=== PATIENT | female | born 1930 | race Caucasian/White ===

== ENCOUNTER 2017-04-12 12:09 | Inpatient (IN) ==
[2017-04-12] MEDS ORDERED: SALINE FLUSH 10ml SYRINGE IVF PRN (14:19)
[2017-04-12] MEDS ORDERED: SALINE FLUSH 10ml SYRINGE ONE (15:34)
[2017-04-12] MEDS ORDERED: ENOXAPARIN 40 MG/0.4 ML INJECTION SQ SCH (15:45)
--- NOTE | 2017-04-12 15:48 | Cardiology History & Physical ---
History of Present Illness Chief complaint: heart racing HPI: Mariana is a 86 year old female who presented to the ED in [place] earlier today with the chief complaint of her heart racing constantly for the last day. She also stated she did not feel right in the head, with intermittent dyspnea and nausea. She reports recently being treated for a UTI. Her only known health problems are HTN, GERD and insomnia. She denies fever, chills, sore throat, cough, chest pain, vomiting or loose stools. Review of Systems - Constitutional Constitutional: Absent: chills, fever(s) - EENMT Eyes: Absent: change in vision Balance: Present: vertigo Mouth/Throat: Absent: sore throat - Cardiovascular Cardiovascular: Present: palpitations, dyspnea on exertion. Absent: chest pain , syncope, orthopnea Rhythm: Present: regular rhythm - Respiratory Respiratory: Present: dyspnea on exertion. Absent: cough - Gastrointestinal Gastrointestinal: Present: nausea. Absent: diarrhea, vomiting - Integumentary/Breasts Integumentary: Absent: rash - Neurological Neurological: Absent: dizziness - Psychiatric Psychiatric: Present: anxiety - Endocrine Endocrine: Present: palpitations PFSH Patient Stated Medical History Migraine Yes Cataracts Yes Hypertension Yes Bronchitis Yes Hx Urinary Tract Infection Yes Shingles Yes Fibroids Yes Surgical History: lumpectomy. cataract removal. kidney stones Family History: No family history of heart disease/CA Mother- CVA in her 70s Father -Cancer - Social History Smoking status: Never smoker Substance use type: does not use Alcohol intake frequency: does not drink Household members: none Current occupational status: retired Current residence: Apartment/Private Home Medications Home Medications Medication Instructions Recorded Confirmed Type Acetaminophen/Diphenhydramine 1 - 2 tab PO HS PRN #0 02/20/15 04/12/17 History [Tylenol Pm Ex-Strength Caplet] Metoprolol Succinate 25 mg PO DAILY #0 tab 02/20/15 04/12/17 History Omeprazole 20 mg PO ACB #0 cap 02/20/15 04/12/17 History Ascorbic Acid [Vitamin C] 240 mg PO DAILY 04/12/17 04/12/17 History Folic Acid/Mv,Iron,Min [One Daily 1 each PO DAILY 04/12/17 04/12/17 History For Women Tablet] Losartan Potassium [Cozaar] 100 mg PO HS 04/12/17 04/12/17 History Nortriptyline HCl 50 mg PO HS 04/12/17 04/12/17 History Allergies Allergy/AdvReac Type Severity Reaction Status Date / Time No Known Allergies Allergy Verified 04/12/17 14:36 Exam Vital signs: Temperature 98.1 F 04/12/17 13:57 Pulse Rate 103 H 04/12/17 13:57 Respiratory Rate 20 04/12/17 13:57 Blood Pressure 156/91 H 04/12/17 13:57 Pulse Oximetry 98 04/12/17 13:57 Oxygen Delivery Method Room Air - Constitutional no acute distress, well nourished, well developed, cooperative - Routine HEENT Exam Head: Present: normocephalic ENT: Present: mucous membranes moist - Routine Neck Exam Absent: JVD, carotid bruit - Routine Chest/Breast/Axilla Exam Chest wall: Absent: tenderness - Routine Respiratory Exam Present: CTA bilaterally. Absent: rales, wheezes - Routine Cardiovascular Exam Present: RRR, no murmur. Absent: JVD - Routine Abdominal Exam Present: soft, normoactive bowel sounds - Routine Extremities Exam Present: no edema - Routine Skin Exam Present: intact, dry, warm - Routine Neurological Exam Present: alert, oriented X3 - Routine Psychiatric Exam Present: normal affect, normal thought process Results 04/14/17 04:27 04/14/17 04:27 Intake and Output 04/12/17 04/12/17 04/12/17 06:59 14:59 22:59 Other: Weight 134 lb 14.766 oz Patient Weight 04/13/17 06:59 Weight 134 lb 14.766 oz - Imaging and Cardiology Echo: report reviewed EKG results: image reviewed Imaging & Cardiology Narrative: Date of Exam: 04/12/17 Type of Exam(s): US echo doppler complete DATE OF PROCEDURE April 12, 2017 This is a two-dimensional echo with spectral Doppler, color-flow and M-mode. It was obtained in a patient with shortness of breath and tachycardia. Left atrial dimension is normal. Left ventricle end-diastolic dimension is normal. Left ventricle wall thickness is normal. LV systolic function is normal with ejection fraction of 56%. Right atrium is normal. Right ventricle is normal. Aortic root dimension is normal. Mitral valve is morphologically normal with mild mitral regurgitation. Aortic valve appears to be normal. Tricuspid valve shows mild tricuspid regurgitation with normal estimated pulmonary artery systolic pressure of 27. Pulmonary valve shows no pulmonary insufficiency. There is no pericardial effusion. IMPRESSION 1. Normal LV systolic function with ejection fraction of 56%. 2. Mild mitral regurgitation. 3. Mild tricuspid regurgitation with normal estimated pulmonary artery systolic pressure of 27. 04/13/17 09:59 Date of Exam: 04/12/17 Ordering Provider: Emilia Sherman APRN Type of Exam(s): NM pul vent and perfuse Reason for Exam(s): elevated D-Dimer Indication: elevated D-Dimer PROCEDURE: NM pul vent and perfuse: Comparison: Chest x-ray from today Technique: The patient received 43.2mCi aerosolized Tc-99m DTPA prior to obtaining ventilation images. Next, 6.4 mCi of Tc-99m MAA was administered intravenously prior to obtaining perfusion images in the standard 8 views. A chest x-ray from today was reviewed. Findings: Ventilation images demonstrate radiotracer uptake throughout both lungs with relative decrease in uptake in both upper lobes. Perfusion images also demonstrate good uptake bilaterally. There is a small nonsegmental perfusion defect in the lateral aspect of the left lower lobe. This corresponds to a defect seen in the ventilation images. There are no segmental perfusion defects. Impression: Low probability lung ventilation/perfusion scan for pulmonary embolus (approximately 15% probability). 04/13/17 09:59 - EKG Interpretation EKG shows: tachycardia EKG interpretations - Dysrhythmias Sinus rhythms and dysrhythmias: sinus tachycardia Hospital Course This is a general summary of the patient's hospital course. For more details refer to the complete medical record. Time spent with patient: 25 - 35 minutes DVT Prophylaxis: Lovenox Assessment and Plan (1) Tachycardia Current visit: Yes Status: Acute Appears sinus tachycardia. Metoprolol 2.5mg IV X1 to slow rate. Repeat EKG in am. Continue home BB, ARB, Aspirin 81mg daily Obtain echo, check TSH and Mag (2) Essential (primary) hypertension Current visit: Yes Status: Chronic well controlled on current therapy (3) GERD (gastroesophageal reflux disease) Current visit: Yes Status: Chronic Continue Omeprazole - Attestation Attestation Narrative: 04/14/17 12:47 Recommendation After examining the patient I agree with the above assessment. I am involved in the formulation of the patient's plan of care.
--- NOTE | 2017-04-12 16:57 | Nuclear Medicine Report ---
Indication: elevated D-Dimer PROCEDURE: NM pul vent and perfuse: Comparison: Chest x-ray from today Technique: The patient received 43.2mCi aerosolized Tc-99m DTPA prior to obtaining ventilation images. Next, 6.4 mCi of Tc-99m MAA was administered intravenously prior to obtaining perfusion images in the standard 8 views. A chest x-ray from today was reviewed. Findings: Ventilation images demonstrate radiotracer uptake throughout both lungs with relative decrease in uptake in both upper lobes. Perfusion images also demonstrate good uptake bilaterally. There is a small nonsegmental perfusion defect in the lateral aspect of the left lower lobe. This corresponds to a defect seen in the ventilation images. There are no segmental perfusion defects. Impression: Low probability lung ventilation/perfusion scan for pulmonary embolus (approximately 15% probability). .
[2017-04-12] MEDS ORDERED: METOPROLOL 5mg/5ml INJECTION IVP ONE (17:17)
[2017-04-12] MEDS ORDERED: APAP/DIPHENHYDRAMINE 500 MG/25 MG TABLET PO PRN (17:47)
--- NOTE | 2017-04-12 18:06 | Echocardiogram ---
DATE OF PROCEDURE April 12, 2017 This is a two-dimensional echo with spectral Doppler, color-flow and M-mode. It was obtained in a patient with shortness of breath and tachycardia. Left atrial dimension is normal. Left ventricle end-diastolic dimension is normal. Left ventricle wall thickness is normal. LV systolic function is normal with ejection fraction of 56%. Right atrium is normal. Right ventricle is normal. Aortic root dimension is normal. Mitral valve is morphologically normal with mild mitral regurgitation. Aortic valve appears to be normal. Tricuspid valve shows mild tricuspid regurgitation with normal estimated pulmonary artery systolic pressure of 27. Pulmonary valve shows no pulmonary insufficiency. There is no pericardial effusion. IMPRESSION 1. Normal LV systolic function with ejection fraction of 56%. 2. Mild mitral regurgitation. 3. Mild tricuspid regurgitation with normal estimated pulmonary artery systolic pressure of 27. MTDD
[2017-04-12] MEDS: NS 1,000 ML IV SCH (18:50)
[2017-04-12] MEDS: LOSARTAN 100 MG TAB - PT OWN PO SCH (20:44)
[2017-04-12] MEDS: NORTRIPTYLINE 25 MG PO SCH (20:44)
[2017-04-13] MEDS: OMEPRAZOLE 20 MG CAP - PT OWN PO SCH (06:08)
[2017-04-13] MEDS: NS 1,000 ML IV SCH (07:42)
[2017-04-13] MEDS: ASPIRIN *EC* 81 MG TAB - PT OWN PO SCH (09:54)
[2017-04-13] MEDS: METOPROLOL SUCCINATE 25 MG PO SCH (09:55)
[2017-04-13] MEDS: ASCORBIC ACID 500 MG TABLET PO SCH (10:30)
[2017-04-13] MEDS: MULTI-VITAMIN + MINERAL TABLET PO SCH (10:30)
[2017-04-13] MEDS ORDERED: ADENOSINE 6mg/2ml INJECTION IVP ONE (13:00)
[2017-04-13] MEDS ORDERED: FLECAINIDE 100 MG TABLET PO SCH (13:12)
[2017-04-13] MEDS ORDERED: FLECAINIDE 100 MG TABLET PO ONE (13:16)
[2017-04-13] MEDS: APIXABAN 5 MG TABLET PO SCH ×2 (14:09→22:01)
--- NOTE | 2017-04-13 14:46 | DC Cardioversion ---
DATE OF PROCEDURE April 13, 2017 HISTORY The patient is an 86-year-old lady with atrial flutter and was referred for cardioversion to restore normal rhythm. Informed consent was obtained after explaining the procedure and the potential risks to the patient who agreed to proceed with the procedure. PROCEDURE 1. DC cardioversion. DESCRIPTION OF PROCEDURE Conscious sedation was performed using Versed and fentanyl. Anterior-posterior Zoll pads were applied. 360 joules of energy was delivered in synchronized manner and patient converted from atrial flutter into sinus rhythm. She tolerated the procedure well with no complications. IMPRESSION 1. Successful DC cardioversion of atrial flutter into sinus rhythm. PLAN The patient has been on anticoagulation with Eliquis and will continue Eliquis and start her on antiarrhythmics to maintain sinus. [facility]
[2017-04-13] MEDS ORDERED: SALINE FLUSH 10ml SYRINGE IV ONE (14:54)
[2017-04-13] MEDS ORDERED: MIDAZOLAM 2mg/2ml INJECTION IVP ONE (14:54)
[2017-04-13] MEDS ORDERED: FentaNYL 100 MCG/2 ML INJECTION IVP ONE (14:54)
[2017-04-13 17:21] VITALS: BMI 24.5
[2017-04-13] MEDS: NORTRIPTYLINE 25 MG PO SCH (22:00)
[2017-04-13] MEDS: FLECAINIDE 50 MG TABLET PO SCH (22:01)
[2017-04-13] MEDS: LOSARTAN 100 MG TAB - PT OWN PO SCH (22:01)
[2017-04-14] MEDS: OMEPRAZOLE 20 MG CAP - PT OWN PO SCH (06:02)
[2017-04-14] MEDS: METOPROLOL SUCCINATE 25 MG PO SCH (09:03)
[2017-04-14] MEDS: ASPIRIN *EC* 81 MG TAB - PT OWN PO SCH (09:03)
[2017-04-14] MEDS: FLECAINIDE 50 MG TABLET PO SCH (09:04)
[2017-04-14] MEDS: APIXABAN 5 MG TABLET PO SCH (09:55)
[2017-04-14] MEDS: MULTI-VITAMIN + MINERAL TABLET PO SCH (09:55)
[2017-04-14] MEDS: ASCORBIC ACID 500 MG TABLET PO SCH (09:56)
[2017-04-14 11:29] VITALS: BP 178/81; RESP 28; TEMP 97.4; O2SAT 94
--- NOTE | 2017-04-14 11:41 | Discharge Summary ---
<Emilia Sherman - Last Filed: 04/14/17 11:38> Discharge Information Date of admission: 04/13/17 13:53 Anticipated date of discharge: 04/14/17 Attending Physician: Teo Santana MD Primary care physician: Judy Augustin MD Consults: 04/12/17 14:48 Dietary Consult [CONS] Routine Comment: Reason For Exam: - Discharge Diagnosis Discharge Diagnosis: New atrial flutter, HTN, GERD - Laboratory Labs: 04/14/17 04:27 04/14/17 04:27 - Radiology Radiology: DATE OF PROCEDURE April 13, 2017 HISTORY The patient is an 86-year-old lady with atrial flutter and was referred for cardioversion to restore normal rhythm. Informed consent was obtained after explaining the procedure and the potential risks to the patient who agreed to proceed with the procedure. PROCEDURE 1. DC cardioversion. DESCRIPTION OF PROCEDURE Conscious sedation was performed using Versed and fentanyl. Anterior-posterior Zoll pads were applied. 360 joules of energy was delivered in synchronized manner and patient converted from atrial flutter into sinus rhythm. She tolerated the procedure well with no complications. IMPRESSION 1. Successful DC cardioversion of atrial flutter into sinus rhythm. PLAN The patient has been on anticoagulation with Eliquis and will continue Eliquis and start her on antiarrhythmics to maintain sinus. History of Present Illness HPI: Mariana is a 86 year old female who presented to the ED in [place] earlier today with the chief complaint of her heart racing constantly for the last day. She also stated she did not feel right in the head, with intermittent dyspnea and nausea. She reports recently being treated for a UTI. Her only known health problems are HTN, GERD and insomnia. She denies fever, chills, sore throat, cough, chest pain, vomiting or loose stools. Hospital Course This is a general summary of the patient's hospital course. For more details refer to the complete medical record. Time spent with patient: 25 - 35 minutes Exam Vital signs: Temperature 97.4 F 04/14/17 08:00 Pulse Rate 68 04/14/17 11:15 Respiratory Rate 28 H 04/14/17 11:15 Blood Pressure 178/81 H 04/14/17 11:02 Pulse Oximetry 94 04/14/17 11:15 Oxygen Delivery Method Room Air - Constitutional no acute distress, cooperative - Routine HEENT Exam Head: Present: normocephalic ENT: Present: mucous membranes moist - Routine Neck Exam Absent: JVD, carotid bruit - Routine Chest/Breast/Axilla Exam Chest wall: Absent: tenderness - Routine Respiratory Exam Present: CTA bilaterally. Absent: rales, wheezes - Routine Cardiovascular Exam Present: RRR, no murmur. Absent: JVD - Routine Abdominal Exam Present: soft, normoactive bowel sounds - Routine Extremities Exam Present: no edema - Routine Skin Exam Present: intact, dry, warm - Routine Neurological Exam Present: alert, oriented X3 - Routine Psychiatric Exam Present: normal affect, normal thought process Results 04/14/17 04:27 04/14/17 04:27 CBC 04/14/17 Range/Units 04:27 WBC 4.9 (4.5-11.0) T/MM3 RBC 3.95 L (4.00-5.20) M/MM3 Hgb 11.8 L (12-16) GM/DL Hct 35.8 L (36-46) % Plt Count 162 (130-400) T/MM3 Comprehensive Metabolic Panel 04/14/17 Range/Units 04:27 Sodium 140 (134-144) MEQ/L Potassium 4.4 (3.6-5) MEQ/L Chloride 104 (98-107) MEQ/L Carbon Dioxide 27 (22-30) MEQ/L BUN 21.0 H (7-17) MG/DL Creatinine 1.1 D (0.7-1.2) MG/DL Glucose 97 (65-110) MG/DL Calcium 8.9 (8.4-10.2) MG/DL Intake and Output 04/13/17 04/14/17 04/14/17 22:59 06:59 14:59 Intake Total 527.5 / 527.5 220 / 220 420 / 420 Output Total 472 / 472 525 / 525 266 / 266 Balance 55.5 / 55.5 -305 / -305 154 / 154 Intake: IV 527.5 / 527.5 Normal Saline 1,000 ml @ 527.5 / 527.5 75 mls/hr IV .[id number] [facility] Rx#:[id number] Oral 220 / 220 420 / 420 Output: Urine Amount (Catheter) 472 / 472 525 / 525 266 / 266 Other: Weight 134 lb 4.184 oz 143 lb 15.39 oz Patient Weight 04/15/17 06:59 Weight 143 lb 15.39 oz Laboratory Results - last 48 hr 04/12/17 04/12/17 04/13/17 16:57 18:26 04:36 WBC 4.7 RBC 4.32 Hgb 12.8 Hct 38.8 MCV 89.8 MCH 29.6 MCHC 33.0 RDW Std Deviation 39.8 Plt Count 173 MPV 9.3 L Turbidity Sodium Potassium Chloride Carbon Dioxide Anion Gap BUN Creatinine GFR Calculation BUN/Creatinine Ratio Glucose Calculated Osmolality Calcium Magnesium Icterus Index Troponin I < 0.012 TSH 1.52 Specimen Hemolysis < 15 Ur Collection Type Urine, mathias Urine Color Yellow Urine Clarity Clear Urine pH 5.5 Ur Specific [place] <=1.005 L Urine Protein Negative Urine Glucose (UA) Negative Urine Ketones Negative Urine Occult Blood Negative Urine Nitrate Negative Urine Bilirubin Negative Urine Urobilinogen 0.2 Ur Leukocyte Esterase 1+ A Urine RBC 0-1 Urine WBC 1-3 Ur Squamous Epith Cells None seen Urine Bacteria None seen Ur Culture Indicated? Cult not indicated 04/13/17 04/14/17 04/14/17 04:36 04:27 04:27 WBC 4.9 RBC 3.95 L Hgb 11.8 L Hct 35.8 L MCV 90.6 MCH 29.9 MCHC 33.0 RDW Std Deviation 40.9 Plt Count 162 MPV 9.1 L Turbidity < 20 < 20 Sodium 141 140 Potassium 4.9 4.4 Chloride 105 104 Carbon Dioxide 29 27 Anion Gap 7 9 BUN 19.0 H 21.0 H Creatinine 1.3 H 1.1 D GFR Calculation 39 47 BUN/Creatinine Ratio 15 19 Glucose 80 97 Calculated Osmolality 272 272 Calcium 9.0 8.9 Magnesium 1.8 1.8 Icterus Index < 2 < 2 Troponin I TSH Specimen Hemolysis < 15 < 15 Ur Collection Type Urine Color Urine Clarity Urine pH Ur Specific [place] Urine Protein Urine Glucose (UA) Urine Ketones Urine Occult Blood Urine Nitrate Urine Bilirubin Urine Urobilinogen Ur Leukocyte Esterase Urine RBC Urine WBC Ur Squamous Epith Cells Urine Bacteria Ur Culture Indicated? - Imaging and Cardiology Imaging & Cardiology Narrative: Date of Exam: 04/12/17 Type of Exam(s): US echo doppler complete DATE OF PROCEDURE April 12, 2017 This is a two-dimensional echo with spectral Doppler, color-flow and M-mode. It was obtained in a patient with shortness of breath and tachycardia. Left atrial dimension is normal. Left ventricle end-diastolic dimension is normal. Left ventricle wall thickness is normal. LV systolic function is normal with ejection fraction of 56%. Right atrium is normal. Right ventricle is normal. Aortic root dimension is normal. Mitral valve is morphologically normal with mild mitral regurgitation. Aortic valve appears to be normal. Tricuspid valve shows mild tricuspid regurgitation with normal estimated pulmonary artery systolic pressure of 27. Pulmonary valve shows no pulmonary insufficiency. There is no pericardial effusion. IMPRESSION 1. Normal LV systolic function with ejection fraction of 56%. 2. Mild mitral regurgitation. 3. Mild tricuspid regurgitation with normal estimated pulmonary artery systolic pressure of 27. - EKG Interpretation EKG: sinus rhythm (rate 70) Discharge Plan - Med Rec/Dispo Referrals/Follow Up: Teo Santana MD [Physician] - 05/03/17 2:10 pm Prescriptions: New Apixaban [Eliquis] 2.5 mg PO BID #60 tablet Flecainide [Tambocor] 50 mg PO Q12HR #60 tablet Continue Omeprazole 20 mg PO ACB #0 cap Acetaminophen/Diphenhydramine [Tylenol Pm Ex-Strength Caplet] 1 - 2 tab PO HS PRN #0 PRN Reason: Sleep Metoprolol Succinate 25 mg PO DAILY #0 tab Losartan Potassium [Cozaar] 100 mg PO HS Ascorbic Acid [Vitamin C] 240 mg PO DAILY Nortriptyline HCl 50 mg PO HS Folic Acid/Mv,Iron,Min [One Daily For Women Tablet] 1 each PO DAILY Discontinued Aspirin *EC* [Ecotrin] 1 tab PO DAILY - Disposition 01 Discharged Home, Self-Care <Teo Santana - Last Filed: 04/14/17 16:28> Discharge Information Date of admission: 04/13/17 13:53 Attending Physician: Teo Santana MD Primary care physician: Judy Augustin MD Consults: 04/12/17 14:48 Dietary Consult [CONS] Routine Comment: Reason For Exam: - Laboratory Labs: 04/14/17 04:27 04/14/17 04:27 Hospital Course This is a general summary of the patient's hospital course. For more details refer to the complete medical record. Exam Vital signs: Temperature 97.4 F 04/14/17 08:00 Pulse Rate 64 04/14/17 12:00 Respiratory Rate 28 H 04/14/17 11:15 Blood Pressure 178/81 H 04/14/17 11:02 Pulse Oximetry 94 04/14/17 11:15 Oxygen Delivery Method Room Air Results 04/14/17 04:27 04/14/17 04:27 CBC 04/14/17 Range/Units 04:27 WBC 4.9 (4.5-11.0) T/MM3 RBC 3.95 L (4.00-5.20) M/MM3 Hgb 11.8 L (12-16) GM/DL Hct 35.8 L (36-46) % Plt Count 162 (130-400) T/MM3 Comprehensive Metabolic Panel 04/14/17 Range/Units 04:27 Sodium 140 (134-144) MEQ/L Potassium 4.4 (3.6-5) MEQ/L Chloride 104 (98-107) MEQ/L Carbon Dioxide 27 (22-30) MEQ/L BUN 21.0 H (7-17) MG/DL Creatinine 1.1 D (0.7-1.2) MG/DL Glucose 97 (65-110) MG/DL Calcium 8.9 (8.4-10.2) MG/DL Intake and Output 04/14/17 04/14/17 04/14/17 06:59 14:59 22:59 Intake Total 220 / 220 780 / 780 Output Total 525 / 525 586 / 586 Balance -305 / -305 194 / 194 Intake: Oral 220 / 220 780 / 780 Output: Urine Amount (Catheter) 525 / 525 586 / 586 Other: # Voids 1 Weight 65.3 kg Patient Weight 04/15/17 06:59 Weight 65.3 kg Discharge Plan - Med Rec/Dispo - Attestation Attestation Narrative: 04/14/17 16:28 Recommendation After examining the patient I agree with the above assessment. I am involved in the formulation of the patient's plan of care.
[2017-04-14 15:08] VITALS: PULSE 64
== END 2017-04-14 14:15 | disposition home or self-care (01) | DRG 310 ==
LOC: MED → CCU 04-13 12:00
PROVIDERS: ADMIT Internal Medicine Cardiovascular Disease; ATTEND Internal Medicine Cardiovascular Disease